=== PATIENT | female | born 1965 | race Caucasian/White ===

== ENCOUNTER 2024-06-16 21:19 | Emergency (ER) | payer OTHER, SELFPAY ==
[2024-06-16 21:30] VITALS: BP 138/80
[2024-06-16 21:31] VITALS: BP 138/80
[2024-06-16 21:38] VITALS: BMI 27.0
[2024-06-16 21:42] LABS: % Basophils 0.4 % (0-2); % Eosinophils 1.7 % (0-6); % Immature Granulocytes 0.1 % (0-0.5); % Lymphocytes 40.7 % (20.5-51.1); % Monocytes 5.2 % (1.7-9.3); % Neutrophils 51.9 % (42.2-75.2); Absolute Eosinophils 0.1 10^3/uL (0-0.7); Absolute Lymphocytes 3.2 10^3/uL (1.2-3.4); Absolute Monocytes 0.4 10^3/uL (0.1-0.6); Absolute Neutrophils 4.1 10^3/uL (1.4-6.5); Hematocrit 35.3 % (37.0-47.0); Hemoglobin 12.6 g/dL (12.0-16.0); Mean Corp Hgb Conc. 35.7 g/dL (33.0-37.0); Mean Corpuscular Hgb 30.7 pg (27.0-31.0); Mean Corpuscular Volume 86.1 fL (81.0-99.0); Mean Platelet Volume 9.5 fL (7.4-10.4); Nucleated Red Blood Cells % 0 %; Platelet Count 283 10^3/uL (130-400); Red Cell Dist. Width 13.4 % (11.5-14.5); White Blood Cell Count 7.8 10^3/uL (4.8-10.8)
[2024-06-16 21:59] LABS: ALT (SGPT) 36 U/L (0-35); AST (SGOT) 35 U/L (14-36); Albumin 4.7 g/dl (3.5-5.0); Alkaline Phosphatase 61 U/L (38-126); Blood Urea Nitrogen 11 mg/dl (7-17); Calcium 9.8 mg/dl (8.4-10.2); Carbon Dioxide 23 mmol/L (22-30); Chloride 104 mmol/L (98-107); Estimated Creatinine Clearance 83 ml/min; Glucose 96 mg/dl (70-99); Potassium 3.6 mmol/L (3.5-5.1); Sodium 137 mmol/L (135-145); Total Bilirubin 0.4 mg/dl (0.2-1.3); Total Protein 7.1 g/dl (6.3-8.2); eGFR > 60.00
[2024-06-16 22:00] VITALS: BP 136/74
--- NOTE | 2024-06-16 22:04 | ED.GENMED ---
History of Present Illness
General
Chief Complaint: Chest Pain
Source: patient
Exam Limitations: none
Time Seen by Provider: 06/16/24 21:42
History of Present Illness
History of Present Illness:
This is a 58 year old female that comes in with c/o chest pain. States that this started about 8:30pm when she was sitting on the [employer] watching the [employer] game. States that it was in the left upper chest and went down the left arm into her hand.
State that there was a little SOB, nausea and lightheaded. States that her chest pain is gone but the nausea has continued. States that her pain lasted for about 15-20min. States that she has had a headache for a few days and has some abd
discomfort. Denies any fever, chills, vomiting, diarrhea, dizziness, urinary burning.
Past History
Past History
ED Past Medical History: GERD, HTN, Hypercholesterolemia, Psychiatric (Anxiety, Depression) and Other (Constipation)
ED Past Surgical History: Gynecological (Uterine ablation), Orthopedic (left knee meniscus) and Other (one lobe removed parathyroid, Breast reduction)
Social History
Tobacco: Non-smoker
Alcohol: Occasional
Personal:
Living: with family
Review of Systems
Review of Systems
All Other Systems: ROS reviewed and negative except as documented in HPI and ROS
Constitutional: Reports no symptoms; Denies fever or chills
EENT: Reports no symptoms
Respiratory: Reports trouble breathing (Very slight); Denies cough
Cardiac: Reports chest pain
ABD/GI: Reports abdominal pain and nausea; Denies vomiting or diarrhea
: Reports no symptoms; Denies dysuria, frequency or urgency
Musculoskeletal: Reports no symptoms
Skin: Reports no symptoms
Neurological: Reports headache and other (Lightheaded); Denies dizzy
Psychiatric: Reports no symptoms
Phy Exam
General Physical Exam
General Presentation: well appearing and no apparent distress
General age: appears stated age
General Skin: warm and dry
General Habitus: normal
General Mental: alert
General Hydration: appears well hydrated
ENT Exam
ENT Exam: TM's normal, pharynx normal and neck supple
Eye Exam
Eye Exam: EOMI
Cardiovascular Exam
Cardiovascular Exam: regular rate/rhythm, no edema, no murmur and normal peripheral pulses
Pulmonary Exam
Pulmonary Exam: lungs clear, no respiratory distress, no rales, chest non tender, no crackles, no rhonchi, no wheezing and no cough
Gastrointestinal Exam
Gastrointestinal Exam: normal bowel sounds, soft, no organomegaly, no pulsatile mass, non distended and tender (Slight tenderness only with palpation)
Musculoskeletal Exam
Musculoskeletal Exam: full ROM and no edema
Skin Exam
Skin Exam: normal color, warm/dry, no rash and no petechia
Psychiatric Exam
Psychiatric Exam: normal mood/affect
Scores
Heart Score for Chest Pain Patients
STEMI patient?: No
History: Slightly or Non-Suspicious
ECG: Normal
Age: >45 - <65 years
Risk Factors: No Risk Factors
Troponin: </= Normal Limit
Heart Score for Chest Pain Patients: 1
Heart Score Risk: 2.5% MACE over next 6 weeks
Course
Orders/Labs/Results
Orders:
Orders
06/16/24 21:21
Electrocardiogram (*1) Urgent
Reason for Study: Chest Pain
Cardiac Monitoring- Treatment ONCE
EKG- Treatment ONCE
IV Insert/Care/Rem.- Treatment PRN
O2 Therapy [RESP] Urgent
Titrate/Wean O2 to maintain O2 sat greater than (%): 90
Special Instructions: Maintain sats >/=90%
Pulse Ox/spot Check [RESP] Urgent
Quantity: 1
Special Instructions: ON ROOM AIR
06/16/24 21:35
Complete Blood Count/With Diff Urgent
Comprehensive Metabolic Panel Urgent
Troponin I Urgent
06/16/24 22:02
Ondansetron Injectable [Zofran] 4 mg IV NOW STA
06/16/24 22:03
EKG- Treatment ONCE
CR Chest - 2 Views Urgent
Comment:
Reason For Exam: Chest pain
06/16/24 22:24
Urinalysis Reflex To Culture Urgent
Date Specimen was Collected: 06/16/24
Time Specimen was Collected: 22:12
Urine Microscopic Reflex Cult Urgent
06/17/24 00:29
Troponin I Urgent
06/17/24 00:30
Electrocardiogram (*1) Urgent
Reason for Study: Chest Pain
Other Reason for Exam: Repeat with Troponin
06/17/24 00:32
Ondansetron Injectable [Zofran] 4 mg .ROUTE .STK-MED ONE
06/17/24 00:34
Ondansetron Injectable [Zofran] 4 mg IV NOW STA
Abnormal Lab Results
06/16/24 06/16/24
21:35 22:24
RBC 4.10 L 10^6/uL
(4.20-5.40)
Hct 35.3 L %
(37.0-47.0)
ALT 36 H U/L
(0-35)
Leukocyte Esterase Rfl Trace A
(Negative)
06/16/24 21:35
06/16/24 21:35
ALT very slightly elevated. Troponin 0.016, Urine negative for infection.
second Troponin <0.012
Vital Signs
Initial and Last Documented VS:
Initial Vital Signs
BP
138/80
06/16/24 21:30
Last Documented Vital Signs
Temp Pulse Resp BP Pulse Ox
97.8 F 76 14 114/66 92
06/16/24 21:31 06/17/24 00:45 06/17/24 00:45 06/17/24 00:00 06/17/24 00:45
MDM/Problems Addressed
Differential Diagnosis Includes:
Coronary syndrome, Musculoskeletal pain
MDM/Problems Addressed:
This is a 58 year old female that comes in with c/o chest pain that goes into the left arm that lasted 15-20min. States that the pain is gone now but that she is still nauseated.
Will get labs, Chest x-ray, and medicate for nausea.
back into see patient. Explained that her blood work is normal along with her chest x-ray. Will wait for second Troponin. Patient states that her nausea is also better. Explained to patient that if her Troponin is normal she will be discharged but
will place patient on the Cardiology hot line for further evaluation.
Chronic conditions affecting care:
NA
Acute Exacerbation and/or Progression of Chronic Illness:
NA
*Radiology
Radiology exam reviewed: radiology read reviewed (CHEST- No acute cardiopulmonary process. )
*Pulse Oximetry
Patient hypoxic: no
*EKG
Interpreted by ED Provider?: Yes
Heart Rate: 99
Rate: normal
Rhythm: sinus
[place]: normal axis
Interval: normal interval
QRS Pattern: normal QRS
Ischemia: no ischemia
*Smoking Tobacco Cutter Operator Interpretation
Rate: normal
Heart Rate: 97
Rhythm: sinus
*Critical Care Note
Total Time (30-74mins, 75-104mins- exclusive of procedures): Not Applicable
ED Attending Note
-
Portions of this chart may have been created with voice recognition software.� Occasional wrong word or��sound alike� substitutions may have occurred due to the inherent limitations of voice recognition software.
Discharge Plan
Departure
Patient Disposition: Home (Routine Discharge)
Date of Disposition: 06/17/24
Time of Disposition: 01:05
Patient with high blood pressure during this ER visit?: No
Condition: Good
Covid-19: Not Applicable
Discharge Problem:
Chest pain
Instructions: Chest Pain CBC Follow Up
Prescriptions:
No Action
aspirin 81 MG tablet,delayed release (DR/EC)
81 mg PO DAILY
omeprazole magnesium [Prilosec OTC] 20 MG tablet,delayed release (DR/EC)
20 mg PO Q48H
fluticasone propionate 1 SPRAY spray,suspension
1 mcg intranasal DAILY PRN (Reason: stuff nose)
venlafaxine [Effexor] 75 mg Tablet
75 mg PO DAILY
albuterol sulfate [ProAir HFA] 90 mcg/actuation Hfa Aerosol Inhaler
2 puff INHALATION Q6H PRN (Reason: SOB)
mecobalamin (vitamin B12) [B12 Active] 1,000 mcg Tablet,Chewable
1,000 mcg PO DAILY
Vitamin D3
1 tab PO DAILY
biotin
1 tab PO DAILY
amlodipine 10 mg Tablet
10 mg PO DAILY
rosuvastatin 5 mg Tablet
5 mg PO DAILY
Referrals:
Lesly Godwin MD [Family Provider] - Follow up in 2-3 days
Activity Restrictions/Additional Instructions:
As discussed, your blood work is normal along with both Troponin. Your Chest x-ray is normal. You have been place on the cardiology hot line. This means that the [facility] office will call you the next business day for further evaluation. Please
just rest over the weekend. IF YOU HAVE INCREASED OR CHANGING CHEST PAIN, SHORTNESS OF BREATH OR YOU HAVE ANY OTHER CONCERNS PLEASE RETURN TO THE EMERGENCY ROOM.
Interventions
Interventions:
*Risk Screen - Suicide Last Done: 06/16/24 21:21
*General Assessment Last Done: 06/16/24 21:21
*Neglect/Abuse Screening Last Done: 06/16/24 21:21
ED- Cardiac Assessment Last Done: 06/16/24 21:55
Discharge Date and Time
Print Language: ESTONIAN
[2024-06-16 22:06] LABS: Troponin I 0.016 ng/ml
[2024-06-16] MEDS: ZOFRAN 4 MG IV (22:08)
[2024-06-16 22:34] LABS: Urine Albumin Negative (Neg - Trace); Urine Bilirubin Negative (Negative); Urine Character Clear (Clear); Urine Color Straw; Urine Glucose Negative (Negative); Urine Ketone Negative (Negative); Urine Leukocyte Trace (Negative); Urine Nitrite Negative (Negative); Urine Occult Blood Negative (Negative); Urine Specific Gravity 1.015 (<1.030); Urine Urobilinogen Negative (Neg - 1+)
[2024-06-16 22:46] LABS: Urine Amorphous Seen; Urine Squamous Cell 21-25 /LPF (Few)
[2024-06-16 23:01] VITALS: BP 111/71
[2024-06-17] VITALS: BP 114/66
[2024-06-17] MEDS: ZOFRAN 4 MG IV (00:34)
[2024-06-17 01:00] VITALS: BP 107/61
[2024-06-17 01:00] LABS: Troponin I < 0.012 ng/ml
== END 2024-06-17 01:23 | disposition home or self-care (01) ==
LOC: EMR 21:19
PROVIDERS: Clinical Nurse Specialist Family Health; Emergency Medicine; EMERGENCY PHYSICIAN Emergency Medicine; FAMILY PHYSICIAN Internal Medicine
DX: R07.89 Other chest pain (principal); K21.9 Gastro-esophageal reflux disease without esophagitis; I10 Essential (primary) hypertension; E78.00 Pure hypercholesterolemia, unspecified; F41.8 Other specified anxiety disorders
CPT/HCPCS: 99283; 96374; 96375; 71046; 80053; 81003; 81015; 84484; 85025; 93005

== ENCOUNTER → 2024-07-03 14:45 | Outpatient (REF) | payer OTHER, SELFPAY | LOC: HWRAD 14:45 | PROVIDERS: ATTENDING PHYSICIAN Internal Medicine | DX: R10.9 Unspecified abdominal pain (principal); K62.5 Hemorrhage of anus and rectum | CPT/HCPCS: 74177; Q9967 ==

== ENCOUNTER → 2024-08-14 08:12 | Outpatient (REF) | payer OTHER, SELFPAY | LOC: WDC 08:12 | PROVIDERS: ATTENDING PHYSICIAN Internal Medicine | DX: Z12.31 Encounter for screening mammogram for malignant neoplasm of breast (principal) | CPT/HCPCS: 77063; 77067 ==

== ENCOUNTER 2024-11-08 06:26 | Day surgery (SDC) | payer OTHER, SELFPAY | END 2024-11-08 11:30 | disposition home or self-care (01) | LOC: GI 06:26 | PROVIDERS: ATTENDING PHYSICIAN Internal Medicine | DX: N81.6 Rectocele (principal); K59.00 Constipation, unspecified; K22.4 Dyskinesia of esophagus; K44.9 Diaphragmatic hernia without obstruction or gangrene; K31.7 Polyp of stomach and duodenum; R93.5 Abnormal findings on diagnostic imaging of other abdominal regions, including retroperitoneum; R12 Heartburn; Z87.19 Personal history of other diseases of the digestive system; Z80.0 Family history of malignant neoplasm of digestive organs | CPT/HCPCS: 45378; 43239; 88305 ==

== ENCOUNTER → 2024-11-09 06:29 | Day surgery (SDC) | payer OTHER, SELFPAY | LOC: GI 06:29 | PROVIDERS: ATTENDING PHYSICIAN Internal Medicine Gastroenterology | DX: K57.30 Diverticulosis of large intestine without perforation or abscess without bleeding (principal); K64.8 Other hemorrhoids; R93.3 Abnormal findings on diagnostic imaging of other parts of digestive tract | CPT/HCPCS: 45380; 88305 ==